=== PATIENT | female | born 2000 | race Two or more races ===

== ENCOUNTER 2024-05-07 22:37 | Emergency (ER) | payer BC ==
[~2024-05-07] VITALS: Ht 157.5 cm; Wt 68.0 kg
[2024-05-07] MEDS ORDERED: SEROQUEL25 MG (22:42)
[2024-05-07] MEDS ORDERED: ADERALL (22:42)
[2024-05-07] MEDS ORDERED: LIDOCAINE HCL 1% 10ML VIAL IJ ONE (23:00)
[2024-05-07] MEDS ORDERED: TETANUS & DIPHTHERIA TOX,ADULT 0.5 ML VIAL IM ONE (23:15)
== END 2024-05-08 02:22 | disposition left against medical advice (07) ==
LOC: ER 22:37
DX: S01.82XA Laceration with foreign body of other part of head, initial encounter (principal); W22.8XXA Striking against or struck by other objects, initial encounter; Y93.89 Activity, other specified; Y92.59 Other trade areas as the place of occurrence of the external cause; Z88.0 Allergy status to penicillin